=== PATIENT | female | born 1990 | race Caucasian/White ===

== ENCOUNTER 2016-06-14 17:36 | Emergency (ER) | payer SELFPAY ==
[~2016-06-14] VITALS: Ht 172.7 cm; Wt 59.1 kg
[2016-06-14 17:37] VITALS: BP 129/77; PULSE 68; RESP 12; TEMP 98; O2SAT 97
== END 2016-06-14 18:50 | disposition left against medical advice (07) ==
LOC: NED 17:36
DX: R11.0 Nausea (principal); F41.9 Anxiety disorder, unspecified; Z53.21 Procedure and treatment not carried out due to patient leaving prior to being seen by health care provider
CPT/HCPCS: 99281